=== PATIENT | female | born 1975 ===

== ENCOUNTER 2024-05-31 11:30 | Inpatient (IN) | payer OTHER ==
[~2024-05-31] VITALS: Ht 157.5 cm; Wt 81.6 kg
[2024-05-31] MEDS ORDERED: ORTHO DF 3,7751 EACH PO (13:55)
[2024-05-31] MEDS ORDERED: HORIZANT300 MG PO (13:55)
[2024-05-31 13:56] VITALS: BP 170/89
[2024-06-04 13:16] LABS: RH NEGATIVE
[2024-06-04] MEDS ORDERED: METRONIDAZOLE/SODIUM CHLORIDE 500 MG/100 ML PIGGYBACK IV ONE (13:25)
[2024-06-04] MEDS ORDERED: CEFTRIAXONE SODIUM 2,000 MG VIAL ONE (13:25)
[2024-06-04] MEDS ORDERED: BUPIVACAINE HCL 30 ML VIAL IJ ONE (14:45)
[2024-06-04] MEDS ORDERED: LIDOCAINE HCL 1%/EPINEPHRINE 20ML VIAL IJ ONE (15:00)
[2024-06-04] MEDS ORDERED: OxyCODONE HCL 5 MG TABLET (ROXICODONE) PO PRN (17:45)
[2024-06-04] MEDS ORDERED: MORPHINE SULFATE 4 MG/ML CARTRIDGE IV PRN (17:45)
[2024-06-04] MEDS ORDERED: RINGERS SOLUTION,LACTATED 1,000 ML IV SCH (17:45)
[2024-06-04] MEDS ORDERED: ONDANSETRON HCL 2 MG/ML VIAL IV PRN (17:45)
[2024-06-04] MEDS ORDERED: ACETAMINOPHEN 500 MG GEL..CAP PO SCH (18:00)
[2024-06-04] MEDS ORDERED: MORPHINE SULFATE 4 MG/ML VIAL IV ONE ×2 (19:20→20:50)
[2024-06-04] MEDS ORDERED: FAMOTIDINE/PF 20 MG/2 ML VIAL IV PUSH SCH (21:00)
[2024-06-04] MEDS ORDERED: SIMETHICONE 125 MG CAPSULE PO SCH (21:00)
[2024-06-04 21:37] LABS: HEMATOCRIT 42.4 % (36.0-45.00); MEAN CELL VOLUME 91.7 fL (80.00-100.00); MEAN CORPUSCULAR HEMOGLOBIN 30.2 pg (27.00-32.0); PLATELET COUNT 234 K/uL (150-450); RED BLOOD COUNT 4.63 M/uL (4.00-6.00); RED CELL DISTRIBUTION WIDTH 13.4 % (11.5-14.5)
[2024-06-04 21:45] VITALS: BP 156/85; O2SAT 95
[2024-06-04 21:49] LABS: ALBUMIN 3.9 gm/dL (3.4-5.0); CALCIUM 9.4 mg/dL (8.5-10.1); CREATININE SERUM 0.86 mg/dL (0.55-1.02); GFR 70.43; MAGNESIUM 1.7 mg/dL (1.8-2.4); PHOSPHOROUS 3.2 mg/dL (2.5-4.9); POTASSIUM 4.07 mEq/L (3.5-5.1)
[2024-06-05] MEDS ORDERED: GABAPENTIN 300 MG CAPSULE PO SCH (01:00)
[2024-06-05 01:13] VITALS: BP 138/84; O2SAT 95
[2024-06-05 08:00] VITALS: BP 130/64; O2SAT 95
[2024-06-05 08:45] LABS: HEMATOCRIT 40.5 % (36.0-45.00); MEAN CELL VOLUME 89.1 fL (80.00-100.00); MEAN CORPUSCULAR HEMOGLOBIN 30.8 pg (27.00-32.0); MEAN CORPUSCULAR HGB CONC 34.5 g/dl (32.0-36.0); PLATELET COUNT 248 K/uL (150-450); RED BLOOD COUNT 4.54 M/uL (4.00-6.00); RED CELL DISTRIBUTION WIDTH 13.4 % (11.5-14.5)
[2024-06-05] MEDS ORDERED: POLYETHYLENE GLYCOL 3350 17 GM BLIST.PACK PO SCH (09:00)
[2024-06-05] MEDS ORDERED: LACTOBACILLUS ACIDOPHILUS 1 CAP CAP PO SCH (09:00)
[2024-06-05] MEDS ORDERED: MAGNESIUM CHLORIDE 70 MG TABLET.DR PO SCH (09:00)
[2024-06-05 09:24] LABS: ALBUMIN 3.5 gm/dL (3.4-5.0); CALCIUM 9.3 mg/dL (8.5-10.1); CREATININE SERUM 0.75 mg/dL (0.55-1.02); GFR 82.48; PHOSPHOROUS 2.8 mg/dL (2.5-4.9); POTASSIUM 4.45 mEq/L (3.5-5.1)
[2024-06-05 16:00] VITALS: BP 126/67; O2SAT 95
[2024-06-05] MEDS ORDERED: ENOXAPARIN SODIUM 40 MG/0.4 ML SYRINGE SUBCUTANEO SCH (17:00)
[2024-06-05] MEDS ORDERED: NAPH,MB-DB/K PH,MBDB 1 PKT PACKET PO SCH (18:31)
[2024-06-05] MEDS ORDERED: FAMOtidine 20 MG TABLET PO SCH (18:33)
[2024-06-05] MEDS ORDERED: POLYETHYLENE GLYCOL 3350 17 GM BLIST.PACK PO PRN (18:34)
[2024-06-06 02:14] VITALS: BP 136/70; O2SAT 95
[2024-06-06 08:00] VITALS: BP 118/76; O2SAT 95
[2024-06-06 08:30] LABS: ALBUMIN 3.1 gm/dL (3.4-5.0); CALCIUM 8.5 mg/dL (8.5-10.1); CREATININE SERUM 0.75 mg/dL (0.55-1.02); GFR 82.48; MAGNESIUM 2.1 mg/dL (1.8-2.4); POTASSIUM 4.14 mEq/L (3.5-5.1)
[2024-06-06 08:36] LABS: HEMATOCRIT 36.5 % (36.0-45.00); HEMOGLOBIN 12.4 g/dL (12.0-15.00); MEAN CELL VOLUME 91.6 fL (80.00-100.00); MEAN CORPUSCULAR HGB CONC 33.9 g/dl (32.0-36.0); PLATELET COUNT 210 K/uL (150-450); RED BLOOD COUNT 3.99 M/uL (4.00-6.00); RED CELL DISTRIBUTION WIDTH 13.5 % (11.5-14.5)
[2024-06-06] MEDS ORDERED: POTASSIUM PHOS,M-BASIC-D-BASIC 15 MM in 0.9 % SODIUM CHLORIDE 250 ML IV NR (17:00)
[2024-06-06] MEDS ORDERED: NAPH,MB-DB/K PH,MBDB 1 PKT PACKET PO SCH (17:00)
[2024-06-06] MEDS ORDERED: BISMUTH SUBSALICYLATE 524 MG/30 ML BLIST.PACK PO STA (17:16)
[2024-06-06 19:42] VITALS: BP 134/81; O2SAT 96
[2024-06-07 01:02] VITALS: BP 123/78; O2SAT 95
[2024-06-07 07:41] LABS: CALCIUM 8.5 mg/dL (8.5-10.1); CREATININE SERUM 0.68 mg/dL (0.55-1.02); GFR 92.35; MAGNESIUM 1.9 mg/dL (1.8-2.4); PHOSPHOROUS 3.2 mg/dL (2.5-4.9); POTASSIUM 4.14 mEq/L (3.5-5.1)
[2024-06-07 08:00] VITALS: BP 154/85; O2SAT 97
== END 2024-06-07 14:05 | disposition home or self-care (01) | DRG 331 ==
LOC: O/R 06-04 07:55 → SURH 06-04 11:00 → SURG 06-04 17:01 → O/R 06-04 17:02 → SURH 06-04 18:45
PROVIDERS: ADMIT Colon & Rectal Surgery; ATTEND Colon & Rectal Surgery
PROC: 0DBP4ZZ Excision of Rectum, Percutaneous Endoscopic Approach (ICD-10-PCS; 2024-06-04)
PROC: 0DJD8ZZ Inspection of Lower Intestinal Tract, Via Natural or Artificial Opening Endoscopic (ICD-10-PCS; 2024-06-04)
PROC: 0DTN4ZZ Resection of Sigmoid Colon, Percutaneous Endoscopic Approach (ICD-10-PCS; principal; 2024-06-04 11:00)
DX: K57.20 Diverticulitis of large intestine with perforation and abscess without bleeding (principal); R10.32 Left lower quadrant pain